=== PATIENT | male | born 1945 | race African-American/Black ===

== ENCOUNTER → 2016-12-11 | Day surgery (SDC) | payer MEDICARE ==
[~2016-12-11] MED LIST: BUPIVACAINE/EPINEPHRINE 0.25% 50 ML VIAL ONE; KETOROLAC TROMETHAMINE 30 MG/ML (IVP) VIAL IV PUSH ONE; LACTATED RINGER'S 1000 ML INJ 1,000 ML ONE; MIDAZOLAM HCL 2 MG/2 ML VIAL ONE; ONDANSETRON HCL 4 MG/2 ML VIAL IV PUSH ONE; PROPOFOL 200 MG/20 ML AMP IV ONE; ceFAZolin 2 GM PREMIX 50 ML ONE
--- NOTE | 2016-12-11 11:14 | TN ---
cc: ABILIO BLACKBURN M.D. DATE OF SURGERY 12/11/2016 PREOPERATIVE DIAGNOSIS Left inguinal hernia. POSTOPERATIVE DIAGNOSIS Left indirect inguinal hernia. PROCEDURE Laparoscopic repair left inguinal hernia with mesh. SURGEON Dr. Abilio Blackburn MACHINE CHOCOLATE MOLDER Fatuma GARLAND ANESTHESIA General. INDICATIONS A pleasant 71-year-old gentleman who has had progressive increased symptoms associated with a left inguinal hernia. Plans are made for operative repair. He has selected the laparoscopic approach. INTRAOPERATIVE FINDINGS Left indirect inguinal hernia sac. Left spermatic cord lipoma. ESTIMATED BLOOD LOSS Less than 5 mL. NOTE This procedure was assisted by my nurse practitioner. The skill set of an APPLICATION PACKAGING SPECIALIST was medically necessary to provide appropriate visualization and increased efficiency in the operative procedure. The surgical territory manager was at the back table providing appropriate instrumentation while the nurse practitioner directly assisting me through the entirety of the procedure. DESCRIPTION OF PROCEDURE IN DETAIL The patient was identified as Rosalind Champion, taken to the operating room, placed in supine position. Sequential compression devices were placed on the bilateral lower extremities. Following induction of adequate general anesthesia, the patient's lower abdomen was prepped and draped in the usual sterile fashion with Betadine. A time-out procedure was performed. Following completion of the time-out procedure to everyone's satisfaction within the room, 0.25% Marcaine with epinephrine was placed at each incision site. An infraumbilical 2-3-cm transverse incision was carried out with a scalpel. Dissection continued posteriorly to the level of the anterior rectus fascia on the left side. This was incised in vertical fashion allowing for development of the preperitoneal plane with the surgeon's finger directed towards the pubic symphysis. The patient was placed in slight Trendelenburg position and the preperitoneal dissecting balloon was placed in the preperitoneal space, its balloon inflated under direct laparoscopic visualization to a total of approximately 30 pumps. This allowed for identification of the left side Tod's ligament and the inferior epigastric vessels. The balloon was desufflated and removed and the structural balloon trocar placed in the preperitoneal space, its balloon inflated to with CO2 insufflation until a level of 11 mmHg ensued. Two infraumbilical midline 5-mm trocars were then placed in the preperitoneal space under direct laparoscopic view after incision of the skin with a scalpel. Blunt graspers were used to create a lateral and posterior window to the spermatic cord on the left side. There was no evidence of direct or femoral hernias. The anteromedial surface was examined and obvious thin indirect inguinal hernia sac was reduced from the internal ring to the base of the spermatic cord using blunt graspers. An associated spermatic cord lipoma was reduced from the inguinal canal to the base of the spermatic cord. In doing so, a small bleeder on the lymph node lateral to the internal inguinal ring was identified and cauterized. A 4 x 6-inch piece of atrium Prolene mesh was cut with anterolateral slit, placed around the spermatic cord and tacked in position with the laparoscopic tacking instrument. The tacks were placed to approximately the anterolateral slit on the anterior border of Tod's ligament and the superior medial border of the mesh. A 2 x 6-inch piece of mesh was placed across the anterolateral slit and held in position inferomedially and superior laterally with the tacking device. Photographs were taken of the completed repair. Broad coverage of the hernia defect was created. The remaining local anesthetic was placed in the preperitoneal space. Trocars were removed under direct visualization. There was no evidence of bleeding from trocar sites. The preperitoneal space was desufflated through the infraumbilical port and it was then removed. The anterior rectus fascial incision was closed with a running 2-0 Vicryl. The skin incisions were approximated 4-0 Monocryl subcuticular sutures. Dressings were applied, Mastisol and 1/2-inch brown Steri-Strips. The patient tolerated the procedure without apparent complication. Sponge, needle and instrument counts were correct at the end of the case. MD JOESPH Tenorio/YURIY /10:22 AM /10:59 AM
== END | disposition home or self-care (01) ==
LOC: ESDC 07:32
PROVIDERS: ATTEND Surgery Trauma Surgery
DX: K40.90 Unilateral inguinal hernia, without obstruction or gangrene, not specified as recurrent (principal)
CPT/HCPCS: 00840; 49650; C1727; C1781; J0690; J1885; J2250; J2405; J3010; J7120